=== PATIENT | female | born 1965 | race Caucasian/White ===

== ENCOUNTER 2021-08-05 22:06 | Emergency (ER) | payer SELFPAY ==
[2021-08-05] MEDS ORDERED: predniSONE 20 MG Tab PO ONE (22:07)
[2021-08-05] MEDS ORDERED: Cyclobenzaprine 10 MG Tab PO ONE (22:07)
[2021-08-05] MEDS ORDERED: Acetaminophen/HYDROcodone 325-5 MG Tab PO ONE (22:07)
[2021-08-05 23:39] LABS: CHLORIDE,CL 105 mmol/L (98-107); SODIUM,NA 140 mmol/L (136-145)
[2021-08-05 23:46] LABS: ESTIMATED GFR > 60
[2021-08-06] MEDS: methylPREDNISolone Sodium Succinate 125 MG/2 ML SDV IVPUSH ONE (00:03)
[2021-08-06] MEDS: Acetaminophen/HYDROcodone 325-5 MG Tab ONE ×2 (00:25)
[2021-08-06] MEDS: Cyclobenzaprine 10 MG Tab ONE (00:25)
[2021-08-06] MEDS: predniSONE 20 MG Tab ONE (00:25)
[2021-08-06] MEDS: Acetaminophen/HYDROcodone 325-10 MG Tab ONE (00:25)
== END 2021-08-06 00:27 | disposition home or self-care (01) ==
LOC: DL.ED 22:06
DX: M54.41 Lumbago with sciatica, right side (principal); Z79.899 Other long term (current) drug therapy
CPT/HCPCS: 36415; 80053; 81003; 83605; 85025; 87040; 96374; 99283; A9270; J2930; J7512